=== PATIENT | female | born 1965 | race Caucasian/White ===

== ENCOUNTER 2021-03-10 09:35 | Emergency (ER) | payer OTHER ==
[~2021-03-10 09:35] MED LIST: CYTOTEC100 MCG PO; NORCO 5-325 TA1 EACH PO
[2021-03-10 10:51] LABS: BASOPHIL 0.2 % (0-2); EOSINOPHIL 0.9 % (0-5); HCT 33.7 % (37.0-47.0); MCH 33.7 pg (25.0-31.0); MCHC 35.6 g/dL (32.0-36.0); MCV 94.7 fL (78.0-100.0); MPV 9.7 fL (6.0-9.5); NEUTROPHIL 66.3 % (41-80); NRBC 0; PLT 243 K/uL (150-400); RBC 3.56 M/uL (4.20-5.40); RDW 11.9 % (11.5-14.0); WBC 4.7 K/uL (4.0-10.5)
[2021-03-10 10:54] LABS: BILIRUBIN - TOTAL 0.4 mg/dL (0.2-1.0); BUN/CREAT RATIO (CALC) 29.1 RATIO; CREATININE 0.55 mg/dL (0.51-0.95); GLOBULIN (CALCULATION) 3.6 g/dL; POTASSIUM 3.2 mmol/L (3.5-5.1); TOTAL PROTEIN 7.6 g/dL (6.4-8.2)
[2021-03-10 10:59] LABS: PTT 27.6 SECONDS (24.4-34.7)
[2021-03-10 11:01] LABS: INR 0.94 (0.9-1.2)
[2021-03-10] MEDS ORDERED: MEDROL 4MG DOSEP4 MG PO (13:49)
[2021-03-10] MEDS ORDERED: NORCO 5-325 TA1 EACH PO (13:49)
== END 2021-03-10 14:00 | disposition home or self-care (01) ==
LOC: FER 09:35
PROVIDERS: Emergency Medicine
DX: I30.0 Acute nonspecific idiopathic pericarditis (principal); F17.290 Nicotine dependence, other tobacco product, uncomplicated
CPT/HCPCS: 36415; 71045; 80053; 84484; 85025; 85379; 85610; 85730; 93005; J1885